=== PATIENT | female | born 1970 | race Caucasian/White ===

== ENCOUNTER → 2016-09-22 | Outpatient (CLI) | payer BC ==
--- NOTE | 2016-09-25 10:57 | MM ---
Reason for exam: screening (asymptomatic). Last mammogram was performed 1 year and 5 months ago. Physical Findings: A clinical breast exam by your physician is recommended on an annual basis and results should be correlated with mammographic findings. MG 3D Screening Mammo W/Cad Bilateral CC and MLO view(s) were taken. Prior study comparison: April 16, 2015, bilateral MG 3d screening mammo w/cad. July 06, 1999, left breast ultrasound. The breast tissue is heterogeneously dense. This may lower the sensitivity of mammography. Asymmetric breast tissue in the left upper quadrant, stable. There is no discrete abnormality. ASSESSMENT: Negative, BI-RAD 1 RECOMMENDATION: Routine screening mammogram of both breasts in 1 year.
== END | disposition home or self-care (01) ==
LOC: RADMAMWWP 07:39
PROVIDERS: ATTEND Obstetrics & Gynecology
DX: Z12.31 Encounter for screening mammogram for malignant neoplasm of breast (principal)
CPT/HCPCS: 77063; G0202

== ENCOUNTER → 2017-02-19 | Outpatient (CLI) | payer BC ==
[2017-02-19 17:38] LABS: Basophils # (A) 0.1 k/uL (0-0.2); Basophils % (A) 1 %; CH 29.1; CHCM 32.1; Eosinophils # (A) 0.1 k/uL (0-0.7); Eosinophils % (A) 1 %; HCT 39.4 % (34.0-46.0); HGB 12.5 gm/dL (11.4-16.0); Luc # (Auto) 0.12; Luc % (Auto) 1; Lymphocytes # (A) 2.4 k/uL (1.0-4.8); Lymphocytes % (A) 24 %; MCH 28.9 pg (25.0-35.0); MCHC 31.8 g/dL (31.0-37.0); Mean Platelet Volume 7.8; Monocytes # (A) 0.5 k/uL (0-1.0); Monocytes % (A) 5 %; Neutrophils # (A) 6.9 k/uL (1.3-7.7); Neutrophils % (A) 69 %; RBC 4.33 m/uL (3.80-5.40); RDW 13.5 % (11.5-15.5); WBC (Perox) 10.76
[2017-02-19 17:59] LABS: Anion Gap 8 mmol/L; Blood Urea Nitrogen 15 mg/dL (7-17); Carbon Dioxide 28 mmol/L (22-30); Chloride 100 mmol/L (98-107); Glucose 89 mg/dL (74-99); Non-African American GFR(MDRD) >60 (>60 ml/min/1.73 sqM); Potassium 4.4 mmol/L (3.5-5.1); Sodium 136 mmol/L (137-145)
== END | disposition home or self-care (01) ==
LOC: LABPAT 16:20
PROVIDERS: ATTEND Obstetrics & Gynecology
DX: Z01.812 Encounter for preprocedural laboratory examination (principal); N94.6 Dysmenorrhea, unspecified; N92.0 Excessive and frequent menstruation with regular cycle
CPT/HCPCS: 36415; 80051; 82565; 82947; 84520; 85025; 87086

== ENCOUNTER 2017-02-26 08:06 | Observation (INO) | payer BC ==
--- NOTE | 2017-02-22 15:58 | HP ---
HISTORY AND PHYSICAL REASON FOR ADMISSION: Surgery on 02/26/2017. HISTORY OF PRESENT ILLNESS: Bettina is a 47-year-old 2, para 2-0-0-2, who, within the last year, has complained of significant ongoing heavy vaginal bleeding. She had multiple attempts at intervention including hormonal manipulation to include Lysteda and meclofenamate. She then more recently underwent an endometrial ablation but was found at the time of the surgery to have a slightly bicornuate uterus and the post ablation hysteroscopic image demonstrated that the right fundal area had not been completely ablated. Nonetheless, we followed her symptoms and they continued to be significant for very heavy and irregular bleeding. She does bleed through her protection regularly. She then returned to the office interested in definitive therapy with hysterectomy. Previous examination at the time of her ablation under anesthesia demonstrates that she is not a good candidate for a vaginal approach, but rather an open or Da Alcon approach. She also carries a history of 2 previous sections, making bladder scarring a possibility. As a result, she will be undergoing Da Alcon robotically assisted laparoscopic hysterectomy with bilateral salpingectomy and subsequent diagnostic cystoscopy. PAST MEDICAL HISTORY: Is significant for the aforementioned bicornuate uterus. She also has some issues with hemorrhoids but no other major medical conditions. PAST SURGICAL HISTORY: Significant for section in 1996 and in 1999. She also had a groin excision of a lymph node in 2007. She underwent endometrial ablation in November of 2015. Additionally, she had tubal ligation during her most recent section and additionally had an umbilical hernia repair in 2001. There were no anesthetic concerns. OBSTETRICAL HISTORY/TRADE EMBALMER HISTORY: 2, para 2-0-0-2 with 2 term sections without complications. Method of contraception is tubal ligation performed at the last section. Gynecologic history is unremarkable with no history of any infections to include STDs. FAMILY HISTORY: Noncontributory. SOCIAL HISTORY: The patient is and is a middle school science teacher in the [email or web address]. She is a nonsmoker and reports occasional alcohol, but no other social concerns. CURRENT MEDICATIONS: Include Anaprox DS as needed for dysmenorrhea. She has also used Lysteda 650 mg, 2 tablets 3 times daily as needed for heavy days of menses. Lastly, she is on spironolactone daily. ALLERGIES: No known drug allergies. REVIEW OF SYSTEMS: Is confined to history of present illness. PHYSICAL EXAMINATION: Vital signs are stable. The patient is afebrile. In general, this is a well- developed, well-nourished white female in no acute distress. HEENT demonstrates PERRLA, EOMI, oropharynx is clear. NECK: Supple without adenopathy and the thyroid is normal to palpation. Her heart has a regular rhythm and rate without murmur. Her lungs are clear to auscultation bilaterally in all prince. Her abdomen is nondistended, has normoactive bowel sounds, soft, nontender, and without any palpable masses, hepatosplenomegaly, or hernias. Her extremities are without any cyanosis, clubbing, or edema and are nontender to palpation bilaterally. Pelvic examination demonstrates normal external genitalia and BUS with normal vaginal mucosa and cervix. There is no cervical motion tenderness. Uterus is 4-5 weeks in size, retroverted, mobile, nontender, normal in shape. The adnexa are normal nontender without mass bilaterally. ASSESSMENT AND PLAN: Menometrorrhagia with dysmenorrhea: The patient has requested definitive therapy and has tried multiple different alternatives including hormonal manipulation and simple control of pain and bleeding. She has elected for definitive therapy at this time with hysterectomy and is only a candidate for an open or Da Alcon approach. As a result, she has been scheduled for DA Alcon robotically assisted laparoscopic hysterectomy with bilateral salpingectomy and diagnostic cystoscopy as noted above. The risks and complications of these procedures have been thoroughly discussed including the risk for bleeding, bleeding requiring transfusion, infection, injury to local structures to include the bowel, bladder, and ureters. Special attention was noted regarding the bladder given her history of 2 previous sections. We additionally discussed injuries unique to Da Alcon surgery to specifically include thermal injury and vaginal cuff dehiscence. She has understood all this and agrees to proceed. We are scheduled for the morning of February 26, 2017 as above. MMODL / IJN: [id number] /
[2017-02-22 15:59] VITALS: BMI 23.7
[~2017-02-26 08:06] MED LIST: DEXAMETHASONE SOD PHOSPHATE 10 MG/ML 1 ML VIAL IV ONE; HYDROmorphone 0.5 MG/0.5 ML SYRINGE IVP PRN; MIDAZOLAM 2 MG/2 ML VIAL IV PRN; ONDANSETRON 4 MG/2 ML VIAL IVP ONE; SCOPOLAMINE 1.5MG/72HR PATCH TRANSDERM ONE; ceFAZolin IN SWFI 2 GM/20 ML SYRINGE IVP ONE
[2017-02-26] MEDS: LACTATED RINGERS 1,000 ML IV SCH ×4 (09:22→17:20)
[2017-02-26] MEDS ORDERED: LIDOCAINE 1% 20 ML VIAL (10MG/ML) FOR IV START INTRADERMA ONE ×2 (09:23→09:24)
[2017-02-26] MEDS ORDERED: GLYCOPYRROLATE 0.2 MG/ML 2 ML VIAL ONE (10:49)
[2017-02-26] MEDS ORDERED: ROCURONIUM BROMIDE 10 MG/ML 10 ML VIAL IV ONE (10:49)
[2017-02-26] MEDS ORDERED: HYDROmorphone (PF) 1 MG/ML ONE (10:49)
[2017-02-26] MEDS ORDERED: SUCCINYLCHOLINE CHLORIDE 100 MG/5 ML SYR IV ONE (10:49)
[2017-02-26] MEDS ORDERED: fentaNYL (PF) 50 MCG/ML 2 ML AMP ONE (10:49)
[2017-02-26] MEDS ORDERED: PROPOFOL 10 MG/ML 20 ML VIAL IV ONE (10:49)
[2017-02-26] MEDS ORDERED: NEOSTIGMINE 1 MG/ML 10 ML VIAL ONE (10:49)
[2017-02-26] MEDS ORDERED: KETOROLAC 30 MG/ML 1 ML VIAL ONE (10:49)
[2017-02-26] MEDS ORDERED: LIDOCAINE 1% INJ 10MG/ML (20 ML MDV) ONE (10:49)
[2017-02-26] MEDS ORDERED: MIDAZOLAM 2 MG/2 ML VIAL ONE (10:49)
[2017-02-26] MEDS ORDERED: BUPIVACAINE (PF) 0.25% 30 ML VIAL SQ ONE ×2 (11:10)
[2017-02-26] MEDS ORDERED: SIMETHICONE 80 MG CHEWABLE PO PRN (12:43)
[2017-02-26] MEDS ORDERED: Acetaminophen-Codeine 300-30mg TAB PO PRN ×2 (12:43)
[2017-02-26] MEDS ORDERED: ONDANSETRON 4 MG/2 ML VIAL IVP PRN (12:43)
[2017-02-26] MEDS ORDERED: IBUPROFEN 600 MG TAB PO PRN (12:43)
[2017-02-26] MEDS ORDERED: diphenhydrAMINE 50 MG/ML 1 ML VIAL IVP PRN (12:43)
[2017-02-26] MEDS ORDERED: METOCLOPRAMIDE 5 MG/ML 2 ML VIAL IVP PRN (12:43)
--- NOTE | 2017-02-26 12:59 | P.OP ---
Date of Procedure: 02/26/17 Preoperative Diagnosis: #1. Menometrorrhagia #2. Failed ablation Postoperative Diagnosis: Same Procedure(s) Performed: #1. Da Alcon robotically assisted laparoscopic hysterectomy with bilateral salpingectomy #2. Diagnostic cystoscopy Anesthesia: FLOWER Surgeon: Chinmay Aguirre Picture Copyist #1: Sarah Barbosa Estimated Blood Loss (ml): 20 IV fluids (ml): 800 Urine output (ml): 500 Pathology: other (Uterus and bilateral fallopian tubes) Condition: stable Disposition: PACU Operative Findings: Intraoperatively, the uterus sounded to approximately 9 cm. There were some adhesions from the previous ablation. Laparoscopically, the uterus, tubes, and ovaries were normal though there was evidence of bilateral tubal ligation. Remainder of the anatomy in the pelvis was normal. The vaginal cuff tissues were significantly difficult to drive a needle through secondary to possibly collagen or the section scar. The section scar was relatively dense but was taken down without difficulty ultimately. Both the laparoscopic and cystoscopically the bladder demonstrated no evidence of damage in the bilateral ureteral orifices were seen peristalsing. Description of Procedure: The patient was prepped and draped in usual fashion after general endotracheal anesthesia was administered by the anesthesiologist. The anterior lip of the cervix was grasped with a single-tooth tenaculum and the uterus sounded to 9 cm as noted above. Serial dilation was carried out to admit an 8 mm uterine manipulator. The cervix measured 2.5 cm allowing for selection of a 2.5 cervical stay sutures were placed from 10:00 to 8:00 and 2:00 to 4:00 into the body of the cervix at the cervicovaginal junction using 0 Vicryl. The Margy manipulator was then applied to the uterus and cervix. The Rush catheter was then placed for clear moraima urine. I then removed myself from the vagina and went to the abdomen where a site was selected approximately 2 cm above the umbilicus in the midline where it 8 mm incision was made in the transverse plane allowing insertion of a 5 mm optical trocar under direct visualization without difficulty. A site was selected approximately 12 cm lateral in the left lower quadrant and perhaps 3 or 47 m below the optical trocar for an 8 mm incision was made in the transverse plane allowing insertion of an 8 mm da Alcon trocar under direct visualization without difficulty. The area between the 2 previously placed ports was then bisected and a site selected approximately 2-3 cm above the optical port where a 10 mm incision was made allowing insertion of a 10 mm volleyball assistant coach port under direct vision station without difficulty. A right lower quadrant port was placed to il or the left lower quadrant port with a da Alcon trocar. The camera was switched the right lower quadrant and the 5 mm optical port removed in favor of an 8 mm da Alcon optical port. This placed under direct visualization without difficulty. The robot was then docked to the patient. I presented to the console and began the hysterectomy with a [place] bipolar cautery forceps in the left arm and a monopolar cautery scissors in the right arm. The right fallopian tube was dissected from the ovary and down to and through the round ligament as well as the utero-ovarian ligament. This allowed development of the bladder peritoneum to the midline. There was fairly significant scarring from 2 previous sections which was encountered. Uterine vasculature was skeletonized and then cauterized with the [place] bipolar cautery forceps. Attention was turned the left side where similar operations were carried out without difficulty. The bladder peritoneum dissection was joined in the midline. Careful sharp dissection with the monopolar cautery scissors was used to reduce the adhesions and ultimately reflect the bladder distally. After identifying the cuff anteriorly and having both vascular pedicles thoroughly cauterized, the uterus was noted to be blanched. It was anteverted and the posterior fornix identified at the site of the Carl cup. It was opened sharply using the monopolar scissors. Once the Carl cup was identified, the incision was followed around to the uterine vasculature and through it. Uterus was then retroverted and the vaginal cuff incision joined anteriorly from side to side. The uterus and tubes were removed into the vagina. The scissors were replaced with a laparoscopic suturing device while the [place] bipolar cautery forceps were replaced with a da Alcon tissue grasper. A stitch of 0 Stratafix suture was utilized to close the vaginal cuff from the right angle to the left angle. There was some fairly significant resistance to the tissue in trying to drive and needle. It was ultimately accomplished in standard fashion. Thorough suction irrigation was then carried out and there was no ongoing bleeding. The pressure was reduced and there was no further bleeding. I returned to the patient and the Rush catheter allowing placement of a diagnostic cystoscope. The bladder was filled and the dome examined from both laparoscopically and cystoscopically side with no evidence of damage anywhere. Examination of the bilateral ureteral her left demonstrated normal peristalsis. The scope was then removed and the Rush catheter replaced. Estimated blood loss for the case was approximately 20 mL. There were no complications. All sponge, instrument, and needle counts were correct. The patient tolerated the procedure well and proceeded to the recovery room in stable condition.
[2017-02-26] MEDS: SENNOSIDES-DOCUSATE SODIUM 1 EACH TAB PO SCH (21:19)
[2017-02-26] MEDS: KETOROLAC 30 MG/ML 1 ML VIAL IVP PRN (22:55)
[2017-02-27] MEDS: LACTATED RINGERS 1,000 ML IV SCH (02:14)
[2017-02-27] MEDS: KETOROLAC 30 MG/ML 1 ML VIAL IVP PRN (06:22)
[2017-02-27 06:51] LABS: Basophils % (A) 0 %; CHCM 31.8; Eosinophils % (A) 0 %; HCT 32.7 % (34.0-46.0); HDW 2.19; HGB 10.6 gm/dL (11.4-16.0); Luc % (Auto) 1; Lymphocytes # (A) 1.5 k/uL (1.0-4.8); Lymphocytes % (A) 10 %; MCH 29.6 pg (25.0-35.0); MCHC 32.3 g/dL (31.0-37.0); MCV 91.7 fL (80.0-100.0); Mean Platelet Volume 8.1; Monocytes # (A) 0.7 k/uL (0-1.0); Monocytes % (A) 5 %; Neutrophils # (A) 12.1 k/uL (1.3-7.7); Neutrophils % (A) 84 %; RBC 3.57 m/uL (3.80-5.40); RDW 13.5 % (11.5-15.5); WBC 14.5 k/uL (3.8-10.6)
--- NOTE | 2017-02-27 08:22 | P.DS ---
Providers Date of admission: 02/27/17 06:52 Expected date of discharge: 02/27/17 Attending physician: Chinmay Aguirre Primary care physician: Stated None - Discharge Diagnosis(es) (1) Menorrhagia Current Visit: No Status: Acute Hospital Course: The patient is a 47-year-old 2 para 2 who has had significant ongoing heavy bleeding over the last couple of years. She's had multiple types of treatment including hormonal manipulation as well as lysed uterine meclofenamate. She most recently underwent endometrial ablation at which time it was noted that she had a slightly bicornuate uterus leading to a suboptimal a mutual ablation result. As result, she continued to have fairly significant and heavy as well as irregular bleeding. She requested definitive therapy with hysterectomy. Exam under anesthesia at the time of her ablation demonstrated that she is only really a candidate for a da Alcon are open approach, particularly given her history of 2 previous sections. As result, she was taken to the operating room for da Alcon robotically assisted laparoscopic hysterectomy with bilateral salpingectomy. This was carried out in an uncomplicated fashion. Her postoperative course was unremarkable vital signs remained stable and her temperature was afebrile throughout. She was deemed stable for discharge by post operative day #1 was discharged home to follow-up in the office in 2 weeks for incision checks and 8 weeks routinely. Discharge instructions included calling for any significantly increased bleeding, incisional complaints, fever, GI complaints, bladder issues, or anything else that concerned her. She was additionally instructed to have nothing in the vagina to include intercourse for at least 8 weeks time. She understood her instructions and agrees to follow up as noted above. Discharge medications included only [id number] analgesic pain medications and any medication she may have been taking at home. Discharge hemoglobin and hematocrit were 10.6 and 32.7 respectively. Procedures: #1. Da Alcon robotically assisted laparoscopic hysterectomy with bilateral salpingectomy #2. Diagnostic cystoscopy Patient Condition at Discharge: Good Plan - Discharge Summary New Discharge Prescriptions: No Action Spironolactone [Aldactone] 75 mg PO HS Multivitamins, Thera [Multivitamin] 1 tab PO DAILY Discharge Medication List Multivitamins, Thera [Multivitamin] 1 tab PO DAILY 11/09/15 [History] Spironolactone [Aldactone] 75 mg PO HS 11/09/15 [History] Follow up Appointment(s)/Referral(s): Chinmay Aguirre MD [STAFF PHYSICIAN] - 2 Weeks Patient Instructions/Handouts: Laparoscopic Hysterectomy (DC) Discharge Disposition: HOME SELF-CARE
[2017-02-27 08:29] VITALS: BP 116/70; PULSE 62; RESP 19; TEMP 97.8
[2017-02-27] MEDS: SENNOSIDES-DOCUSATE SODIUM 1 EACH TAB PO SCH (08:57)
== END 2017-02-27 13:35 | disposition home or self-care (01) ==
LOC: OR 08:06 → 6PED 13:00 → OR 02-27 06:52
PROVIDERS: ADMIT Obstetrics & Gynecology; ATTEND Obstetrics & Gynecology
DX: N92.1 Excessive and frequent menstruation with irregular cycle (principal); N83.8 Other noninflammatory disorders of ovary, fallopian tube and broad ligament; Q51.3 Bicornate uterus; N94.6 Dysmenorrhea, unspecified
CPT/HCPCS: 58571; S2900; 81025; 85025; 86850; 86900; 86901; 88307

== ENCOUNTER → 2018-10-31 | Outpatient (CLI) | payer BC ==
--- NOTE | 2018-10-31 13:18 | MM ---
Reason for exam: screening (asymptomatic). Last mammogram was performed 2 years and 1 month ago. Physical Findings: A clinical breast exam by your physician is recommended on an annual basis and results should be correlated with mammographic findings. MG 3D Screening Mammo W/Cad Bilateral CC and MLO view(s) were taken. Prior study comparison: September 22, 2016, bilateral MG 3d screening mammo w/cad. April 16, 2015, bilateral MG 3d screening mammo w/cad. The breast tissue is heterogeneously dense. This may lower the sensitivity of mammography. There is a central outer left breast mass at posterior depth measuring 4mm. No suspicious abnormality on right. ASSESSMENT: Incomplete: need additional imaging evaluation, BI-RAD 0 RECOMMENDATION: Special view mammogram of the left breast. If lesion persists on supplemental views, image directed ultrasound is recommended. [facility] will attempt to contact patient to return for supplemental views and ultrasound if indicated.
== END | disposition home or self-care (01) ==
LOC: RADMAMWWP 08:31
PROVIDERS: ATTEND Obstetrics & Gynecology
DX: Z12.31 Encounter for screening mammogram for malignant neoplasm of breast (principal)
CPT/HCPCS: 77063; 77067

== ENCOUNTER → 2018-11-11 | Outpatient (CLI) | payer BC ==
--- NOTE | 2018-11-11 10:59 | MM ---
Reason for exam: additional evaluation requested from abnormal screening. Last mammogram was performed less than 1 month ago. Physical Findings: Nurse did not find any significant physical abnormalities on exam. MG 3D Work Up W/Cad LT Spot compression CC, spot compression MLO, ML, and XCCL view(s) were taken of the left breast. Prior study comparison: October 31, 2018, bilateral MG 3d screening mammo w/cad. September 22, 2016, bilateral MG 3d screening mammo w/cad. The breast tissue is heterogeneously dense. This may lower the sensitivity of mammography. There is a round circumscribed mass that persists around 9 o'clock at posterior depth 6.5-7cm from nipple. These results were verbally communicated with the patient and result sheet given to the patient on 11/11/18. ASSESSMENT: Incomplete: need additional imaging evaluation, BI-RAD 0 RECOMMENDATION: Ultrasound of the left breast. (9 o'clock)
--- NOTE | 2018-11-11 11:01 | USB ---
Reason for exam: additional evaluation requested from abnormal screening. US Breast Workup Limited LT Let limited breast ultrasound including focal area of concern, retroareolar and axilla demonstrates no cystic or solid lesion seen. No sonographic correlate. Questionable present on MLO view only of 2017, unchanged. If interval growth in 6 months stereotactic attempt would be recommended. These results were verbally communicated with the patient and result sheet given to the patient on 11/11/18. ASSESSMENT: Probably benign, BI-RAD 3 RECOMMENDATION: Follow-up diagnostic mammogram of the left breast in 6 months.
== END | disposition home or self-care (01) ==
LOC: RADMAMWWP 09:02
PROVIDERS: ATTEND Obstetrics & Gynecology
DX: R92.8 Other abnormal and inconclusive findings on diagnostic imaging of breast (principal)
CPT/HCPCS: 77061; 77065

== ENCOUNTER → 2019-11-07 | Outpatient (CLI) | payer BC ==
--- NOTE | 2019-11-07 14:58 | MM ---
Reason for exam: additional evaluation requested from prior study. Last mammogram was performed 1 year ago. History: Took hormonal contraceptives for 20 years. Taking other hormone for 1 year 6 months. Physical Findings: Nurse did not find any significant physical abnormalities on exam. MG 3D Diag Mammo W/Cad HELEN Bilateral CC, MLO, and XCCL view(s) were taken. Prior study comparison: November 11, 2018, left breast MG 3d work up w/cad LT. October 31, 2018, bilateral MG 3d screening mammo w/cad. The breast tissue is heterogeneously dense. This may lower the sensitivity of mammography. There is chronic nodularity in the left breast. Mild distortion. These results were verbally communicated with the patient and result sheet given to the patient on 11/07/19. ASSESSMENT: Incomplete: need additional imaging evaluation, BI-RAD 0 RECOMMENDATION: Ultrasound of the left breast.
--- NOTE | 2019-11-07 14:59 | USB ---
Reason for exam: additional evaluation requested from abnormal screening. History: Took hormonal contraceptives for 20 years. Taking other hormone for 1 year 6 months. US Breast Limited LT Left limited breast ultrasound including focal area of concern, retroareolar and axilla demonstrates no cystic or solid lesion seen. Dense tissue throughout. These results were verbally communicated with the patient and result sheet given to the patient on 11/07/19. ASSESSMENT: Probably benign, BI-RAD 3 RECOMMENDATION: Follow-up diagnostic mammogram of the left breast in 6 months.
== END | disposition home or self-care (01) ==
LOC: RADMAMWWP 12:51
PROVIDERS: ATTEND Obstetrics & Gynecology
DX: R92.8 Other abnormal and inconclusive findings on diagnostic imaging of breast (principal)
CPT/HCPCS: 77062; 77066

== ENCOUNTER → 2020-07-02 | Outpatient (CLI) | payer BC ==
--- NOTE | 2020-07-05 08:05 | MM ---
Reason for exam: follow-up at short interval from prior study. Last mammogram was performed 8 months ago. History: Patient is postmenopausal. Took hormonal contraceptives for 20 years. Took estrogen for 2 years. Taking other hormone for 1 year 6 months. Physical Findings: Nurse did not find any significant physical abnormalities on exam. MG 3D Diag Mammo W/Cad LT CC and MLO view(s) were taken of the left breast. Prior study comparison: November 07, 2019, bilateral MG 3d diag mammo w/cad HELEN. November 11, 2018, left breast MG 3d work up w/cad LT. The breast tissue is heterogeneously dense. This may lower the sensitivity of mammography. No significant new findings when compared with previous films. These results were verbally communicated with the patient and result sheet given to the patient on 07/02/20. ASSESSMENT: Benign, BI-RAD 2 RECOMMENDATION: Follow-up diagnostic mammogram of both breasts in 6 months. Back on schedule.
== END | disposition home or self-care (01) ==
LOC: RADMAMWWP 14:52
PROVIDERS: ATTEND Obstetrics & Gynecology
DX: R92.8 Other abnormal and inconclusive findings on diagnostic imaging of breast (principal); Z78.0 Asymptomatic menopausal state
CPT/HCPCS: 77061; 77065

== ENCOUNTER → 2021-01-19 | Outpatient (CLI) | payer BC ==
--- NOTE | 2021-01-20 11:20 | MM ---
Reason for exam: additional evaluation requested from prior study. Last mammogram was performed 7 months ago. History: Patient is postmenopausal. Took hormonal contraceptives for 20 years. Taking other hormone for 1 year 6 months. Physical Findings: Nurse did not find any significant physical abnormalities on exam. MG 3D Diag Mammo W/Cad HELEN Bilateral CC and MLO view(s) were taken. XCCL view(s) were taken of the left breast. Prior study comparison: July 02, 2020, left breast MG 3d diag mammo w/cad LT. November 07, 2019, bilateral MG 3d diag mammo w/cad HELEN. October 31, 2018, bilateral MG 3d screening mammo w/cad. September 22, 2016, bilateral MG 3d screening mammo w/cad. The breast tissue is heterogeneously dense. This may lower the sensitivity of mammography. No significant new findings when compared with previous films. These results were verbally communicated with the patient and result sheet given to the patient on 01/19/21. ASSESSMENT: Benign, BI-RAD 2 RECOMMENDATION: Routine screening mammogram of both breasts in 1 year.
== END | disposition home or self-care (01) ==
LOC: RADMAMWWP 14:48
PROVIDERS: ATTEND Obstetrics & Gynecology
DX: R92.2 Inconclusive mammogram (principal); Z78.0 Asymptomatic menopausal state
CPT/HCPCS: 77062; 77066

== ENCOUNTER → 2022-01-31 | Outpatient (CLI) | payer BC ==
--- NOTE | 2022-02-01 17:26 | MM ---
Reason for Exam: Screening (asymptomatic). Last screening mammogram was performed 12 month(s) ago. Patient History: Menarche at age 17. First Full-Term at age 26. Hysterectomy at age 46. Postmenopausal. Patient used Hormonal Contraceptives for 20 years. Currently using Estrogen and Progesterone, for 1 year, 6 months. Risk Values: Macy 5 year model risk: 0.8%. NCI Lifetime model risk: 7.5%. Prior Study Comparison: 11/07/2019 Bilateral Diagnostic Mammogram, [facility]. 07/02/2020 Left Diagnostic Mammogram, [facility]. 01/19/2021 Bilateral Diagnostic Mammogram, [facility]. Tissue Density: The breast tissue is heterogeneously dense. This may lower the sensitivity of mammography. Findings: Analyzed By CAD. Pattern appears stable. A tiny stable nodule in the outer aspect right mid breast craniocaudal view. No suspicious groups of microcalcifications, spiculated or lobular masses, architectural distortion or other secondary signs of malignancy are mammographically apparent. Overall Assessment: Benign, BI-RAD 2 Management: Screening Mammogram of both breasts in 1 year. A negative mammogram report should not preclude additional follow up of suspicious palpable abnormalities. Patient should continue monthly self breast exam. A clinical breast exam by your physician is recommended on an annual basis and results should be correlated with mammographic findings. Electronically signed and approved by: Scottie Barlow D.O. Radiologis
== END | disposition home or self-care (01) ==
LOC: RADMAMWWP 16:23
PROVIDERS: ATTEND Obstetrics & Gynecology
DX: Z12.31 Encounter for screening mammogram for malignant neoplasm of breast (principal)
CPT/HCPCS: 77063; 77067

== ENCOUNTER → 2023-05-22 | Outpatient (CLI) | payer BC ==
--- NOTE | 2023-05-23 13:29 | MM ---
Reason for Exam: Screening (asymptomatic). Last mammogram was performed 1 year(s) and 4 month(s) ago. Patient History: Menarche at age 17. First Full-Term at age 26. Hysterectomy at age 46. Postmenopausal. Patient used Hormonal Contraceptives for 20 years. Currently using Estrogen and Progesterone, for 1 year, 6 months. Risk Values: Macy 5 year model risk: 0.8%. NCI Lifetime model risk: 7.2%. Prior Study Comparison: 07/02/2020 Left Diagnostic Mammogram, [facility]. 01/19/2021 Bilateral Diagnostic Mammogram, [facility]. 01/31/2022 Bilateral MG 3D screening mammo w/cad, [facility]. Tissue Density: The breast tissue is heterogeneously dense. This may lower the sensitivity of mammography. Findings: Analyzed By CAD. There is no suspicious group of microcalcifications or new suspicious mass. Overall Assessment: Negative, BI-RAD 1 Management: Screening Mammogram of both breasts in [address] [facility] will attempt to contact patient to return for supplemental views and ultrasound if indicated. Patient should continue monthly self-breast exams. A clinical breast exam by your physician is recommended on an annual basis. This exam should not preclude additional follow-up of suspicious palpable abnormalities. Note on Macy scores and lifetime risk: 1. A Macy score greater than 3% is considered moderate risk. If this is the case, consider specialist referral to assess eligibility for a risk reducing agent. 2. If overall lifetime risk for the development of breast cancer is 20% or higher, the patient may qualify for future screening with alternating mammogram and breast MRI. Electronically signed and approved by: Nikos Henriquez DO
== END | disposition home or self-care (01) ==
LOC: RADMAMWWP 10:55
PROVIDERS: ATTEND Obstetrics & Gynecology
DX: Z12.31 Encounter for screening mammogram for malignant neoplasm of breast (principal); Z78.0 Asymptomatic menopausal state
CPT/HCPCS: 77063; 77067

== ENCOUNTER → 2024-07-30 | Outpatient (CLI) | payer BC ==
--- NOTE | 2024-07-30 10:08 | MM ---
Reason for Exam: Screening (asymptomatic). Last mammogram was performed 1 year(s) and 2 month(s) ago. Patient History: Menarche at age 17. First Full-Term at age 26. Hysterectomy at age 46. Postmenopausal. Patient used Hormonal Contraceptives for 20 years. Currently using Estrogen and Progesterone, starting at age 45. Risk Values: Macy 5 year model risk: 0.9%. NCI Lifetime model risk: 7.1%. Prior Study Comparison: 09/22/2016 Bilateral Screening Mammogram, [facility]. 10/31/2018 Bilateral Screening Mammogram, [facility]. 11/11/2018 Left Diagnostic Mammogram, [facility]. 11/07/2019 Bilateral Diagnostic Mammogram, [facility]. 07/02/2020 Left Diagnostic Mammogram, [facility]. 01/19/2021 Bilateral Diagnostic Mammogram, [facility]. 01/31/2022 Bilateral MG 3D screening mammo w/cad, [facility]. 05/22/2023 Bilateral MG 3D screening mammo w/cad, [facility]. Tissue Density: The breasts are heterogeneously dense, which may obscure small masses. Findings: Analyzed By CAD. There is no suspicious group of microcalcifications or new suspicious mass in either breast. Overall Assessment: Benign, BI-RAD 2 Management: Screening Mammogram of both breasts in 1 year. . Patient should continue monthly self-breast exams. A clinical breast exam by your physician is recommended on an annual basis. This exam should not preclude additional follow-up of suspicious palpable abnormalities. Note on Macy scores and lifetime risk: 1. A Macy score greater than 3% is considered moderate risk. If this is the case, consider specialist referral to assess eligibility for a risk reducing agent. 2. If overall lifetime risk for the development of breast cancer is 20% or higher, the patient may qualify for future screening with alternating mammogram and breast MRI. [facility], , 07/30/2024 10:06 AM. Electronically signed and approved by: Jose Davis M.D. Radiolog[facility]
== END | disposition home or self-care (01) ==
LOC: RADMAMWWP 08:53
PROVIDERS: ATTEND Obstetrics & Gynecology
DX: Z12.31 Encounter for screening mammogram for malignant neoplasm of breast (principal); R92.333 Mammographic heterogeneous density, bilateral breasts; Z78.0 Asymptomatic menopausal state; Z92.0 Personal history of contraception
CPT/HCPCS: 77063; 77067